=== PATIENT | female | born 1990 | race Caucasian/White ===

== ENCOUNTER 2017-08-10 23:22 | Emergency (ER) | payer OTHER ==
[~2017-08-10] VITALS: Ht 162.6 cm; Wt 63.8 kg
[2017-08-10 23:25] VITALS: Ht 162.6 cm; Wt 63.8 kg
[2017-08-11] MEDS ORDERED: IBUPROFEN 600 MG TAB PO ONE
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
[2017-08-11] MEDS ORDERED: IBUP-1542 PO (00:37)
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
== END 2017-08-11 01:22 | disposition home or self-care (01) ==
LOC: FTE 23:22
DX: S16.1XXA Strain of muscle, fascia and tendon at neck level, initial encounter (principal); S20.219A Contusion of unspecified front wall of thorax, initial encounter; V49.40XA Driver injured in collision with unspecified motor vehicles in traffic accident, initial encounter; Y92.9 Unspecified place or not applicable
CPT/HCPCS: 71010; Z7502; Z7610